=== PATIENT | male | born 1990 | race African-American/Black ===

== ENCOUNTER 2018-09-29 19:12 | Emergency (ER) | payer SELFPAY ==
[2018-09-29 19:36] VITALS: BP 128/77
[2018-09-29] MEDS ORDERED: IBUPROFEN 800 MG TABLET PO ONE (20:41)
--- NOTE | 2018-09-29 20:47 | ER Document Report ---
ED Extremity Problem, Upper - General Chief Complaint: Arm Injury Stated Complaint: ARM PAIN Time Seen by Provider: 09/29/18 20:07 Mode of Arrival: Ambulatory Information source: Patient Notes: 28-year-old male presented to ED for complaint of injury to the left arm when he was playing football today. He states he went to reach for somebody and felt a large pop in his left arm when someone hit him. He states he walked off the field and went home because of the pain. He knew some had to be done and that he thought he had done some to his bicep muscle. Patient is alert and oriented respirations regular and unlabored speaking in full sentences. TRAVEL OUTSIDE OF THE [place] IN LAST 30 DAYS: No - HPI Patient complains to provider of: Injury, Left, Other - upper arm Onset: This afternoon Recent injury: Yes Where: Outdoors Quality of pain: Burning, Sharp Severity of pain: Moderate Pain Level: 2 Context: Other - Playing football felt a very large pop in his left upper arm and then pain. 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 Lives with: Spouse/Significant other Family History: Reviewed & Not Pertinent Patient has suicidal ideation: No Patient has homicidal ideation: No - Past Medical History Cardiac Medical History: Reports: None Pulmonary Medical History: Reports: None EENT Medical History: Reports: None Neurological Medical History: Reports: None Endocrine Medical History: Reports: None Renal/ Medical History: Reports: None Malignancy Medical History: Reports None GI Medical History: Reports: None Musculoskeletal Medical History: Reports None Skin Medical History: Reports None Psychiatric Medical History: Reports: None Traumatic Medical History: Reports: None Infectious Medical History: Reports: None Surgical Hx: Negative Past Surgical History: Reports: None - Immunizations Immunizations up to date: Yes Review of Systems - Review of Systems Notes: REVIEW OF SYSTEMS: CONSTITUTIONAL : Denies fever, chills, or sweats. Denies recent illness. EENT: Denies eye, ear, throat, or mouth pain or symptoms. Denies nasal or sinus congestion or discharge. Denies throat, tongue, or mouth swelling or difficulty swallowing. CARDIOVASCULAR: Denies chest pain. Denies palpitations or racing or irregular heart beat. Denies ankle edema. RESPIRATORY: Denies cough, cold, or chest congestion. Denies shortness of breath, difficulty breathing, or wheezing. GASTROINTESTINAL: Denies abdominal pain or distention. Denies nausea, vomiting , or diarrhea. Denies blood in vomitus, stools, or per rectum. Denies black, tarry stools. Denies constipation. GENITOURINARY: Denies difficulty urinating, painful urination, burning, frequency, blood in urine, or discharge. MUSCULOSKELETAL: Denies back or neck pain or stiffness. Pain swelling and deformity to the left bicep muscle. States he felt a pop when he was playing football and trying to grab someone. States he knew he had injured his muscle right away and came to the emergency room to have it evaluated. SKIN: Denies rash, lesions or sores. HEMATOLOGIC : Denies easy bruising or bleeding. LYMPHATIC: Denies swollen, enlarged glands. NEUROLOGICAL: Denies confusion or altered mental status. Denies passing out or loss of consciousness. Denies dizziness or lightheadedness. Denies headache. Denies weakness or paralysis or loss of use of either side. Denies problems with gait or speech. Denies sensory loss, numbness, or tingling. Denies seizures. PSYCHIATRIC: Denies anxiety or stress. Denies depression, suicidal ideation, or homicidal ideation. ALL OTHER SYSTEMS REVIEWED AND NEGATIVE. Dictation was performed using [employer] voice recognition software PHYSICAL EXAMINATION: GENERAL: Well-appearing, well-nourished and in no acute distress. HEAD: Atraumatic, normocephalic. EYES: Pupils equal round and reactive to light, extraocular movements intact, sclera anicteric, conjunctiva are normal. ENT: Nares patent, oropharynx clear without exudates. Moist mucous membranes. NECK: Normal range of motion, supple without lymphadenopathy LUNGS: Breath sounds clear to auscultation bilaterally and equal. No wheezes rales or rhonchi. HEART: Regular rate and rhythm without murmurs ABDOMEN: Soft, nontender, nondistended abdomen. No guarding, no rebound. No masses appreciated. Musculoskeletal: Moderate deformity in the bicep muscle on the left upper arm. Tenderness to palpation. No bruising at this time. Mild swelling noted to the bicep muscle. NEUROLOGICAL: Cranial nerves grossly intact. Normal speech, normal gait. Normal sensory, motor exams PSYCH: Normal mood, normal affect. SKIN: Warm, Dry, normal turgor, no rashes or lesions noted. Physical Exam - Vital signs Vitals: Temp Pulse Resp BP Pulse Ox 98.1 F 66 18 128/77 H 94 09/29/18 19:35 09/29/18 19:35 09/29/18 19:35 09/29/18 19:35 09/29/18 19:35 Course - Re-evaluation Re-evalutation: 09/29/18 21:[address] Espinoza came and examined the patient recommended be consulted. I consulted Dr. Monae who stated the patient would need to be seen on Tuesday and that the patient could call the office on Tuesday to be seen Tuesday. He also recommended elevation ice sling and ibuprofen. Patient was given instructions on elevation ice ibuprofen. He was provided with a sling and instructed on how to use the sling. He stated he would prefer to use over- the-counter ibuprofen rather than have prescription. Patient was discharged home happed he verbalized understanding and agreement with treatment plan. - Vital Signs Vital signs: Temp Pulse Resp BP Pulse Ox 98.1 F 66 18 128/77 H 94 09/29/18 19:35 09/29/18 19:35 09/29/18 19:35 09/29/18 19:35 09/29/18 19:35 Discharge - Discharge Clinical Impression: Rupture of left biceps tendon Qualifiers: Encounter type: initial encounter Qualified Code(s): S46.212A - Strain of muscle, fascia and tendon of other parts of biceps, left arm, initial encounter Condition: Stable Disposition: HOME, SELF-CARE Additional Instructions: You have ruptured your left bicep tendon. It is important that you ice it elevated and wear your sling until you are followed up by orthopedics. I have given you the name and number of Dr. Monae. He is the cash management specialist senior contracts administrator grant he stated that if you call him first thing on Tuesday you will get seen Tuesday for this injury. It is very important that you follow-up with orthopedics to prevent permanent damage. He stated that she will probably have a lot of bruising and swelling before you see him on Tuesday this is to be expected. Stated you need to be sure to see him on Tuesday Sling to be Used You are to use a sling. This is to rest the area, and to prevent it from hanging downward. Use this sling for at least 48 hours (or longer if so instructed by the doctor). Some types of splints will break if not supported by the sling, so the sling must be used as long as the splint. Ice can be placed inside the sling over the injured area. Once you remove the sling, you should not encounter pain when you use the arm and hand. If you do feel pain beneath the cast or splint, you must continue use of the sling. Ice & Elevation Apply ice packs frequently against the painful area. Many different schedules are recommended, such as "20 minutes on, 20 minutes off" or "one hour ice, two hours rest." If you need to work, you may need to go longer between ice treatments. You should plan to have the area ice packed AT LEAST one- fourth of the time. The ice should be applied over the wrap, tape, or splint, or over a layer of cloth -- not directly against the skin. Some ice bags have a built-in cloth and can be put directly on the skin. Your injured part should be elevated as much as possible over the next 48 hours. Try to keep the injury above the level of the heart. Avoid use of the injured area. Elevation and rest will decrease the swelling. Ibuprofen Ibuprofen is an excellent, safe drug for pain control. In addition, it has potent antiinflammatory effects which are beneficial, especially in the treatment of injuries, arthritis, or tendonitis. It's best to take ibuprofen with food. Persons with ulcer disease or allergy to aspirin should notify their physician of this before taking ibuprofen. Take the medication exactly as prescribed. Don't take additional doses unless instructed to do so by your doctor. If you develop wheezing, shortness of breath, hives, faintness, stomach pain, vomiting, or dark black stools, return for re-evaluation at once. You can take up to 4 [id number] ibuprofen every 8 hours no more than at one time and no more frequent than every 8 hours. FOLLOW-UP CARE: If you have been referred to a physician for follow-up care, call the physician s office for an appointment as you were instructed or within the next two days. If you experience worsening or a significant change in your symptoms, notify the physician immediately or return to the Emergency Department at any time for re-evaluation. Forms: Special Work Note, Elevated Blood Pressure Referrals: BRENDON MONAE DO [ACTIVE STAFF] - 10/02/18
== END 2018-09-29 21:12 | disposition home or self-care (01) ==
LOC: ER 19:12
DX: S46.212A Strain of muscle, fascia and tendon of other parts of biceps, left arm, initial encounter (principal); W51.XXXA Accidental striking against or bumped into by another person, initial encounter; Y93.61 Activity, american tackle football; F17.210 Nicotine dependence, cigarettes, uncomplicated
CPT/HCPCS: 99283; 99406